=== PATIENT | male | born 1985 | race Two or more races ===

== ENCOUNTER 2020-11-30 16:01 | Emergency (ER) | payer BC ==
[2020-11-30] MEDS ORDERED: Acetaminophen/oxyCODONE 325-5 MG Tab PO ONE (16:36)
[2020-11-30] MEDS ORDERED: Ibuprofen 600 MG Tab PO ONE (16:36)
--- NOTE | 2020-11-30 16:40 | EDM.PDOC ---
ED HPI GENERAL MEDICAL PROBLEM - General Chief Complaint: Lower Extremity Injury/Pain Stated Complaint: LEFT FOOT INJURY Time Seen by Provider: 11/30/20 16:03 Source of Information: Reports: Patient History Limitations: Reports: No Limitations - History of Present Illness INITIAL COMMENTS - FREE TEXT/NARRATIVE: 35-year-old no past medical history presents for atraumatic left ankle pain. Patient states that he was in normal state of health yesterday. Woke up with a mild pain in his left ankle mostly on the lateral aspect. Denies any known injury or inversion injury. He noted that throughout the day of standing at work the pain became worse. It is not particularly painful to touch but is painful to bear weight on. He has not noted any redness or swelling. He denies pain in other joints. left foot Pain Score (Numeric/FACES): 5 - Related Data Allergies Allergy/AdvReac Type Severity Reaction Status Date / Time No Known Allergies Allergy Verified 11/30/20 17:04 Home Meds: Home Meds Acetaminophen/oxyCODONE [Percocet 325-5 MG] 1 each PO Q4H PRN #9 tab 11/30/20 [Rx] Ibuprofen [Motrin] 600 mg PO Q6H PRN #20 tab 11/30/20 [Rx] Review of Systems - Review of Systems Review Of Systems: Comprehensive ROS is negative, except as noted in HPI. ED EXAM, GENERAL - Physical Exam Exam: See Below Exam Limited By: No Limitations General Appearance: Alert, WD/WN, No Apparent Distress Throat/Mouth: Normal Voice, No Airway Compromise Head: Atraumatic, Normocephalic Neck: Normal Inspection Respiratory/Chest: No Respiratory Distress, No Accessory Muscle Use Cardiovascular: Normal Peripheral Pulses, Other (normal L dorsalis pedis pulse) Extremities: Normal Inspection, Other (no TTP of L ankle, no malleolus TTP, no erythema/warmth/gross swelling) Psychiatric: Normal Affect, Normal Mood Skin Exam: Warm, Dry, Intact, Normal Color Course - Vital Signs Last Recorded V/S: Last Vital Signs Temp 97.4 F 11/30/20 16:20 Pulse 90 11/30/20 16:20 Resp 16 11/30/20 16:20 BP 148/96 H 11/30/20 16:20 Pulse Ox 98 11/30/20 16:20 - Orders/Labs/Meds Meds: Medications Discontinued Medications Generic Name Dose Route Start Last Admin Trade Name Freq PRN Reason Stop Dose Admin Ibuprofen 600 mg 11/30/20 16:36 11/30/20 17:14 Motrin PO 11/30/20 16:37 600 mg ONETIME ONE Administration Oxycodone/Acetaminophen 2 tab 11/30/20 16:36 11/30/20 17:14 Percocet 325-5 Mg PO 11/30/20 16:37 2 tab ONETIME ONE Administration - Re-Assessments/Exams Free Text/Narrative Re-Assessment/Exam: 11/30/20 16:39 Patient presents with atraumatic left ankle pain worse with bearing weight. Based on history I was concerned for gout although location of pain and physical exam do not really support a gout diagnosis. I have a low suspicion of fracture considering there is no injury reported. Will get x-ray imaging. Will treat pain symptomatically. Spoke with patient and informed that he may need to follow-up with a primary care physician for more definitive diagnosis if no etiology of symptoms is determined in the emergency department. 11/30/20 17:23 X-ray imaging is unremarkable. Will refer to orthopedics for further work-up as needed. Will discharge with short course of analgesia. Departure - Departure Time of Disposition: 17:23 Disposition: Home, Self-Care 01 Condition: Good Clinical Impression: Ankle pain, left Qualifiers: Chronicity: acute Qualified Code(s): M25.572 - Pain in left ankle and joints of left foot - Discharge Information Prescriptions: Ibuprofen [Motrin] 600 mg PO Q6H PRN #20 tab PRN Reason: Pain Instructions: Ankle Pain Referrals: PCP,None [Primary Care Provider] - Forms: ED Department Discharge Additional Instructions: The following information is given to patients seen in the emergency department who are being discharged to home. This information is to outline your options for follow-up care. We provide all patients seen in our emergency department with a follow-up referral. The need for follow-up, as well as the timing and circumstances, are variable depending upon the specifics of your emergency department visit. If you don't have a primary care physician on staff, we will provide you with a referral. We always advise you to contact your personal physician following an emergency department visit to inform them of the circumstance of the visit and for follow-up with them and/or the need for any referrals to a consulting specialist. The emergency department will also refer you to a specialist when appropriate. This referral assures that you have the opportunity for follow-up care with a specialist. All of these measure are taken in an effort to provide you with optimal care, which includes your follow-up. Under all circumstances we always encourage you to contact your private physician who remains a resource for coordinating your care. When calling for follow-up care, please make the office aware that this follow-up is from your recent emergency room visit. If for any reason you are refused follow-up, please contact the [facility] Emergency Department at and asked to speak to the emergency department charge nurse. Orthopedics: [facility] [address] [place] [address], [address] [place] [address] Please follow up with your primary care physician. If you do not have a primary care physician, see below: [facility] [address] [place] [id number] [facility] [address] [place] [address] [facility] [address] [place] [id number] Sepsis Event Note (ED) - Focused Exam Vital Signs: Vital Signs Temp Pulse Resp BP Pulse Ox 11/30/20 16:20 97.4 F 90 16 148/96 H 98
--- NOTE | 2020-11-30 17:14 | CR ---
INDICATION: Atraumatic ankle pain COMPARISON: None TECHNIQUE: Examination consists of three views of the left ankle FINDINGS: Bone mineral density appears normal. There is no lytic or blastic lesion, fracture or dislocation identified. There is a small to moderate dorsal calcaneal spur. No arthritic process IMPRESSION: Small to moderate dorsal calcaneal spur. No fracture, dislocation, destructive process or arthritis. Dictated by Luis F Lemons MD @ Nov 30 2020 5:10PM Signed by Dr. Luis F Lemons @ Nov 30 2020 5:12PM
== END 2020-11-30 17:56 | disposition home or self-care (01) ==
LOC: MW.ED 16:01
DX: M25.572 Pain in left ankle and joints of left foot (principal); X50.9XXA Other and unspecified overexertion or strenuous movements or postures, initial encounter; Y99.0 Civilian activity done for income or pay
CPT/HCPCS: 73610; 99283; A9270

== ENCOUNTER 2021-11-26 08:20 | Emergency (ER) | payer BC ==
[2021-11-26] MEDS ORDERED: Ondansetron 4 MG Tab.DIS PO ONE (08:39)
[2021-11-26] MEDS ORDERED: Acetaminophen 500 MG Tab PO ONE (08:56)
== END 2021-11-26 09:48 | disposition home or self-care (01) ==
LOC: MW.ED 08:20
DX: U07.1 COVID-19 (principal); J06.9 Acute upper respiratory infection, unspecified; J45.909 Unspecified asthma, uncomplicated
CPT/HCPCS: 87635; 99283; A9270; U0002

== ENCOUNTER 2023-02-18 15:01 | Emergency (ER) | payer BC ==
[2023-02-18] MEDS ORDERED: Sodium Chloride 0.9% 1,000 ML IV ONE (15:10)
[2023-02-18] MEDS ORDERED: Aspirin 81 MG Tab.Chew PO ONE (15:10)
[2023-02-18] MEDS ORDERED: Ketorolac 30 MG/ML SDV IVPUSH ONE (15:21)
[2023-02-18 15:49] LABS: POTASSIUM,K 4.1 mmol/L (3.5-5.1)
[2023-02-18] MEDS ORDERED: Albuterol/Ipratropium 3.0-0.5 MG/3 ML Neb Soln NEB ONE (15:55)
[2023-02-18 16:10] LABS: CORONAVIRUS COVID-19 NAA NEGATIVE (NEGATIVE); INFLUENZA A NAA NEGATIVE (NEGATIVE); INFLUENZA B NAA NEGATIVE (NEGATIVE); RESPIRATORY SYNCYTIAL VIR NAA NEGATIVE (NEGATIVE)
== END 2023-02-18 18:27 | disposition home or self-care (01) ==
LOC: MW.ED 15:01
DX: R07.2 Precordial pain (principal); I10 Essential (primary) hypertension; J45.909 Unspecified asthma, uncomplicated; R00.0 Tachycardia, unspecified; Z20.822 Contact with and (suspected) exposure to COVID-19
CPT/HCPCS: 0241U; 36415; 71045; 80053; 81003; 84443; 84484; 85025; 85379; 93005; 96361; 96374; 99285; J1885; J7030; 93010; 99284; J7620-GY

== ENCOUNTER 2024-07-06 11:53 | Emergency (ER) | payer BC ==
[2024-07-06 13:49] LABS: CORONAVIRUS COVID-19 NAA NEGATIVE (NEGATIVE); INFLUENZA A NAA NEGATIVE (NEGATIVE); INFLUENZA B NAA NEGATIVE (NEGATIVE)
[2024-07-06] MEDS: Azithromycin 250 MG Tab PO ONE (14:31)
== END 2024-07-06 14:37 | disposition home or self-care (01) ==
LOC: MW.ED 11:53
DX: J98.8 Other specified respiratory disorders (principal); Z75.8 Other problems related to medical facilities and other health care; J45.909 Unspecified asthma, uncomplicated; Z86.16 Personal history of COVID-19; F17.210 Nicotine dependence, cigarettes, uncomplicated
CPT/HCPCS: 0240U; 71046; 99283; A9270